=== PATIENT | female | born 1935 | race Caucasian/White ===

== ENCOUNTER 2023-11-19 12:28 | Emergency (ER) | payer OTHER, MEDICARE ==
[2023-11-19 12:52] VITALS: RESP 18; TEMP 98.8; BMI 17.4
[2023-11-19] MEDS ORDERED: ACETAMINOPHEN INJECTION 100 ML IVPB ONE (14:01)
[2023-11-19] MEDS ORDERED: SODIUM BICARBONATE 8.4% 50 MEQ/50 ML VIAL ONE (14:01)
[2023-11-19 14:26] LABS: BASO % 0.8 % (0-2.0); EOS % 0.5 % (0-4.5); HEMATOCRIT 39.6 % (32.4-45.2); HEMOGLOBIN 13.5 GM/dL (10.7-15.3); LYMPH % 18.5 % (8-40); MCH 31.9 pg (25.7-33.7); MCHC 34.2 g/dl (32.0-36.0); MEAN CELL VOLUME 93.3 fl (80-96); MEAN PLT VOLUME 8.2 fl (7.5-11.1); MONO % 5.8 % (3.8-10.2); NEUT % 74.4 % (42.8-82.8); PLATELET COUNT 238 10^3/uL (134-434); RBC 4.24 M/mm3 (3.60-5.2); RDW 14.6 % (11.6-15.6); WHITE BLOOD COUNT 4.8 K/mm3 (4.0-10.0)
[2023-11-19 14:37] LABS: POTASSIUM 4.5 mmol/L (3.5-5.1)
[2023-11-19 14:40] LABS: ALBUMIN 3.9 g/dl (3.4-5.0); CALCIUM 9.5 mg/dL (8.5-10.1)
[2023-11-19 14:41] LABS: MAGNESIUM 2.1 mg/dL (1.8-2.4)
[2023-11-19 14:44] LABS: BILIRUBIN,TOTAL 0.9 mg/dL (0.2-1); CREATININE 0.8 mg/dL (0.55-1.3); PHOSPHOROUS 3.8 mg/dL (2.5-4.9)
[2023-11-19 14:46] LABS: TOT PROT 7.1 g/dl (6.4-8.2)
[2023-11-19 14:47] LABS: INR 0.94 (0.83-1.09); PROTHROMBIN TIME (PATIENT) 10.6 SEC (9.7-13.0)
[2023-11-19 14:50] LABS: ACTIVATED PTT 31.4 SECONDS (25.2-36.5)
[2023-11-19 15:11] LABS: URINE APPEARANCE CLEAR; URINE BILIRUBIN NEGATIVE (NEGATIVE); URINE COLOR YELLOW; URINE GLUCOSE (UA) NEGATIVE (NEGATIVE); URINE KETONE NEGATIVE (NEGATIVE); URINE LEUK ESTERASE NEGATIVE (NEGATIVE); URINE NITRITE NEGATIVE (NEGATIVE); URINE PROTEIN TRACE (NEGATIVE)
[2023-11-19] MEDS: ACETAMINOPHEN 1000 MG/100 ML BAG IVPB ONE (16:00)
[2023-11-19 20:05] VITALS: BP 125/71; PULSE 64
== END 2023-11-19 20:37 | disposition home or self-care (01) ==
LOC: JER 12:28
PROC: 3E033NZ Introduction of Analgesics, Hypnotics, Sedatives into Peripheral Vein, Percutaneous Approach (ICD-10-PCS; principal; 2023-11-19)
DX: K52.9 Noninfective gastroenteritis and colitis, unspecified (principal); R10.13 Epigastric pain; K59.00 Constipation, unspecified; R60.0 Localized edema; R10.2 Pelvic and perineal pain; R10.31 Right lower quadrant pain
CPT/HCPCS: 36415; 71045-TC-FY; 74177-TC; 80053; 81003; 83605; 83690; 83735; 84100; 84484; 85025; 85610; 85730; 87086; 93005; 93010; 99285-25; J0131; Q9967

== ENCOUNTER 2023-11-23 17:34 | Inpatient (IN) | payer OTHER, MEDICARE ==
[2023-11-23 19:04] LABS: BASO % 0.2 % (0-2.0); EOS % 0.4 % (0-4.5); HEMATOCRIT 39.8 % (32.4-45.2); HEMOGLOBIN 13.1 GM/dL (10.7-15.3); LYMPH % 10.2 % (8-40); MCH 31.4 pg (25.7-33.7); MCHC 32.9 g/dl (32.0-36.0); MEAN CELL VOLUME 95.4 fl (80-96); MEAN PLT VOLUME 7.7 fl (7.5-11.1); MONO % 6.5 % (3.8-10.2); NEUT % 82.7 % (42.8-82.8); PLATELET COUNT 184 10^3/uL (134-434); RBC 4.17 M/mm3 (3.60-5.2); RDW 14.4 % (11.6-15.6); WHITE BLOOD COUNT 11.6 K/mm3 (4.0-10.0)
[2023-11-23 19:23] LABS: CHLORIDE 103 mmol/L (98-107); POTASSIUM 3.9 mmol/L (3.5-5.1); SODIUM 138 mmol/L (136-145)
[2023-11-23 19:26] LABS: CALCIUM 9.4 mg/dL (8.5-10.1)
[2023-11-23 19:27] LABS: ALBUMIN 3.8 g/dl (3.4-5.0); ANION GAP 5 mmol/L (4-13); BLOOD UREA NITROGEN 18.8 mg/dL (7-18); CO2 30 mmol/L (21-32); GLUCOSE,RANDOM 106 mg/dL (74-106)
[2023-11-23 19:30] LABS: CREATININE 0.8 mg/dL (0.55-1.3); SGOT/AST 42 U/L (15-37); SGPT/ALT 47 U/L (13-61)
[2023-11-23 19:31] LABS: TOT PROT 6.9 g/dl (6.4-8.2)
[2023-11-23 19:32] LABS: BILIRUBIN,TOTAL 1.1 mg/dL (0.2-1)
[2023-11-23 19:33] LABS: ALK PHOS 158 U/L (45-117)
[2023-11-23] MEDS ORDERED: ACETAMINOPHEN INJECTION 100 ML IVPB ONE (20:02)
[2023-11-23] MEDS: ACETAMINOPHEN 1000 MG/100 ML BAG IVPB ONE (20:12)
[2023-11-23 20:22] LABS: EPI CELLS 1 /uL (0-25.1); HYALINE CASTS 0 /uL (0-3.1); PH,URINE 7.5 (5.0-8.0); URINE APPEARANCE CLEAR; URINE BACTERIA >9,000 /uL (0-1359); URINE BILIRUBIN NEGATIVE (NEGATIVE); URINE COLOR YELLOW; URINE GLUCOSE (UA) NEGATIVE (NEGATIVE); URINE KETONE NEGATIVE (NEGATIVE); URINE LEUK ESTERASE 1+ (NEGATIVE); URINE NITRITE POSITIVE (NEGATIVE); URINE PROTEIN NEGATIVE (NEGATIVE); URINE RBC 10 /uL (0-23.9); URINE UROBILINOGEN 0.2 mg/dL (0.2-1.0); URINE WBC 127 /uL (0-25.8)
[2023-11-23] MEDS ORDERED: CEFTRIAXONE 1 GM/50 ML BAG ONE (21:00)
[2023-11-23] MEDS ORDERED: ACETAMINOPHEN 325 MG TABLET (FP) PO PRN (23:04)
[2023-11-23] MEDS ORDERED: PHENAZOPYRIDINE HCL 100 MG TABLET (FP) ONE (23:12)
[2023-11-23] MEDS ORDERED: LOSARTAN POTASSIUM 50 MG TABLET ONE (23:13)
[2023-11-23] MEDS: LIDOCAINE PATCH REMOVAL MC SCH (23:15)
[2023-11-23] MEDS: LIDOCAINE 5% TOPICAL PATCH TP SCH (23:15)
[2023-11-23] MEDS: PHENAZOPYRIDINE HCL 100 MG TABLET (FP) PO ONE (23:15)
[2023-11-23] MEDS: LOSARTAN POTASSIUM 50 MG TABLET PO ONE (23:15)
[2023-11-23 23:50] LABS: MAGNESIUM 1.9 mg/dL (1.8-2.4)
[2023-11-24] MEDS ORDERED: HALOPERIDOL LACTATE 5 MG/ML ONE (00:06)
[2023-11-24] MEDS: D5-1/2NS+10 MEQ KCL - 10 MEQ/1,000 ML INFUS.BAG IV SCH (00:15)
[2023-11-24] MEDS: HALOPERIDOL LACTATE 5 MG/ML IM ONE (00:40)
[2023-11-24] MEDS: LORazepam 2 MG/ML SDV VIAL IVPUSH PRN (00:40)
[2023-11-24] MEDS: MELATONIN 1 MG TABLET PO ONE (00:41)
[2023-11-24 06:07] LABS: POTASSIUM 3.6 mmol/L (3.5-5.1)
[2023-11-24 06:09] LABS: BASO % 0.3 % (0-2.0); EOS % 0.8 % (0-4.5); HEMATOCRIT 37.9 % (32.4-45.2); HEMOGLOBIN 12.8 GM/dL (10.7-15.3); LYMPH % 7.9 % (8-40); MCH 31.9 pg (25.7-33.7); MCHC 33.9 g/dl (32.0-36.0); MEAN CELL VOLUME 94.1 fl (80-96); MEAN PLT VOLUME 7.7 fl (7.5-11.1); MONO % 5.9 % (3.8-10.2); NEUT % 85.1 % (42.8-82.8); PLATELET COUNT 170 10^3/uL (134-434); RBC 4.03 M/mm3 (3.60-5.2); RDW 14.6 % (11.6-15.6); WHITE BLOOD COUNT 10.2 K/mm3 (4.0-10.0)
[2023-11-24 06:11] LABS: CALCIUM 8.5 mg/dL (8.5-10.1)
[2023-11-24 06:12] LABS: BLOOD UREA NITROGEN 15.1 mg/dL (7-18)
[2023-11-24 06:15] LABS: CREATININE 0.7 mg/dL (0.55-1.3)
[2023-11-24] MEDS: AMINO ACIDS/PROTEIN HYDROLYS 30 ML LIQUID.PKT PO SCH (08:51)
[2023-11-24] MEDS ORDERED: ESCITALOPRAM OXALATE 10 MG TABLET ONE (08:54)
[2023-11-24] MEDS ORDERED: PANTOPRAZOLE 40 MG TABLET PO ONE (08:54)
[2023-11-24] MEDS ORDERED: CHOLECALCIFEROL (VIT D3) 1,000 UNIT (25 MCG) TABLET ONE (08:54)
[2023-11-24] MEDS ORDERED: LIDOCAINE 5% TOPICAL PATCH ONE (08:54)
[2023-11-24] MEDS: PANTOPRAZOLE 40 MG TABLET PO SCH (09:18)
[2023-11-24] MEDS: LACTOBACILLUS ACIDOPHILUS 1 TABLET PO SCH (09:18)
[2023-11-24] MEDS: ESCITALOPRAM OXALATE 10 MG TABLET PO SCH (09:18)
[2023-11-24] MEDS: MEMANTINE HCL 5 MG TABLET (UD) PO SCH (09:18)
[2023-11-24] MEDS: CYANOCOBALAMIN 1,000 MCG TABLET (FP) PO SCH (09:19)
[2023-11-24] MEDS: MULTIVITAMINS THER W-MINERALS COMBO TABLET (FP) PO SCH (09:19)
[2023-11-24] MEDS: CHOLECALCIFEROL (VIT D3) 1,000 UNIT (25 MCG) TABLET PO SCH (09:19)
[2023-11-24] MEDS ORDERED: PANTOPRAZOLE 40 MG TABLET PO SCH (10:00)
[2023-11-24 10:46] LABS: ERYTHROCYTE SEDIMENTATION RATE 11 mm/hr (0-30)
[2023-11-24] MEDS ORDERED: CEFTRIAXONE 2 GM/100 ML BAG IVPB ONE (15:05)
[2023-11-24] MEDS: CEFTRIAXONE 2 GM in DEXTROSE 5%-WATER 100 ML IVPB SCH (15:05)
[2023-11-24] MEDS: MONTELUKAST NA 10 MG TABLET PO SCH (21:44)
[2023-11-25 07:22] LABS: BASO % 0.6 % (0-2.0); EOS % 0.9 % (0-4.5); HEMATOCRIT 37.2 % (32.4-45.2); HEMOGLOBIN 12.7 GM/dL (10.7-15.3); LYMPH % 11.4 % (8-40); MCH 32.1 pg (25.7-33.7); MCHC 34.2 g/dl (32.0-36.0); MEAN CELL VOLUME 93.7 fl (80-96); MEAN PLT VOLUME 8.1 fl (7.5-11.1); MONO % 6.4 % (3.8-10.2); NEUT % 80.7 % (42.8-82.8); PLATELET COUNT 166 10^3/uL (134-434); RBC 3.97 M/mm3 (3.60-5.2); WHITE BLOOD COUNT 8.9 K/mm3 (4.0-10.0)
[2023-11-25 07:27] LABS: POTASSIUM 3.7 mmol/L (3.5-5.1)
[2023-11-25 07:32] LABS: CALCIUM 8.3 mg/dL (8.5-10.1)
[2023-11-25 07:33] LABS: BLOOD UREA NITROGEN 20.2 mg/dL (7-18)
[2023-11-25 07:34] LABS: CREATININE 0.7 mg/dL (0.55-1.3)
[2023-11-25] MEDS: D5-1/2NS+10 MEQ KCL - 10 MEQ/1,000 ML INFUS.BAG IV SCH (09:57)
[2023-11-25 15:33] VITALS: BMI 16.9
[2023-11-25] MEDS: POLYETHYLENE GLYCOL (HEALTHYLAX) 3350 17 GM PACKET PO SCH (17:04)
[2023-11-25] MEDS: MINERAL OIL ENEMA 133 ML ENEMA RC ONE (17:04)
[2023-11-25] MEDS: DOCUSATE SODIUM 100 MG CAPSULE (FP) PO SCH (17:05)
[2023-11-25 17:48] LABS: INR 0.98 (0.83-1.09); PROTHROMBIN TIME (PATIENT) 11.1 SEC (9.7-13.0)
[2023-11-25] MEDS: MELATONIN 5 MG TABLETS PO ONE (21:53)
[2023-11-26] MEDS: D5-1/2NS+10 MEQ KCL - 10 MEQ/1,000 ML INFUS.BAG IV SCH ×3 (09:15→22:59)
[2023-11-26 12:23] LABS: BASO % 0.2 % (0-2.0); EOS % 0.7 % (0-4.5); HEMATOCRIT 35.6 % (32.4-45.2); HEMOGLOBIN 12.1 GM/dL (10.7-15.3); LYMPH % 10.1 % (8-40); MCH 32.2 pg (25.7-33.7); MCHC 34.1 g/dl (32.0-36.0); MEAN CELL VOLUME 94.3 fl (80-96); MEAN PLT VOLUME 8.2 fl (7.5-11.1); MONO % 7.5 % (3.8-10.2); NEUT % 81.5 % (42.8-82.8); PLATELET COUNT 175 10^3/uL (134-434); RBC 3.77 M/mm3 (3.60-5.2); RDW 13.9 % (11.6-15.6); WHITE BLOOD COUNT 7.9 K/mm3 (4.0-10.0)
[2023-11-26 12:38] LABS: CALCIUM 8.4 mg/dL (8.5-10.1); POTASSIUM 3.6 mmol/L (3.5-5.1)
[2023-11-26 12:39] LABS: BLOOD UREA NITROGEN 15.8 mg/dL (7-18)
[2023-11-26 12:42] LABS: CREATININE 0.6 mg/dL (0.55-1.3)
[2023-11-26] MEDS ORDERED: PROPOFOL 20 ML ONE (13:27)
[2023-11-26] MEDS ORDERED: BUPIVACAINE HCL/PF 0.5% (5MG/ML) 10 ML VIAL ONE (13:30)
[2023-11-26] MEDS ORDERED: ALBUTEROL SO4 HFA INHALER IH ONE (13:32)
[2023-11-26] MEDS ORDERED: ceFAZolin SODIUM 1 GM VIAL ONE (13:35)
[2023-11-26] MEDS: ceFAZolin SODIUM 1 GM VIAL IVPB ONE (14:20)
[2023-11-26] MEDS ORDERED: ONDANSETRON 4 MG/2 ML VIAL IVPUSH PRN (15:27)
[2023-11-26] MEDS ORDERED: ACETAMINOPHEN INJECTION 100 ML IVPB ONE (16:08)
[2023-11-26] MEDS: ACETAMINOPHEN 1000 MG/100 ML BAG IVPB ONE (16:16)
[2023-11-26] MEDS: LACTATED RINGERS SOLUTION 1,000 ML IV SCH (16:17)
[2023-11-26] MEDS ORDERED: POLYETHYLENE GLYCOL (HEALTHYLAX) 3350 17 GM PACKET PO ONE (16:25)
[2023-11-26] MEDS: POLYETHYLENE GLYCOL (HEALTHYLAX) 3350 17 GM PACKET PO ONE (19:04)
[2023-11-26] MEDS: AMINO ACIDS/PROTEIN HYDROLYS 30 ML LIQUID.PKT PO SCH (19:04)
[2023-11-26] MEDS: MEMANTINE HCL 5 MG TABLET (UD) PO SCH (22:57)
[2023-11-26] MEDS: DOCUSATE SODIUM 100 MG CAPSULE (FP) PO SCH (22:57)
[2023-11-26] MEDS: LIDOCAINE PATCH REMOVAL MC SCH ×2 (22:58)
[2023-11-26] MEDS: MONTELUKAST NA 10 MG TABLET PO SCH (22:58)
[2023-11-26] MEDS ORDERED: CEFAZOLIN SODIUM 2 GM in DEXTROSE 5%-WATER 100 ML IVPB SCH ×2 (23:00→23:47)
[2023-11-26] MEDS: ACETAMINOPHEN 1000 MG/100 ML BAG IVPB PRN (23:24)
[2023-11-26] MEDS: LORazepam 2 MG/ML SDV VIAL IVPUSH PRN (23:25)
[2023-11-26] MEDS: CEFAZOLIN SODIUM 2 GM in DEXTROSE 5%-WATER 100 ML IVPB SCH (23:51)
[2023-11-27] MEDS: CEFAZOLIN 2 GM in DEXTROSE 5%-WATER - 50 ML IVPB SCH (01:07)
[2023-11-27 08:10] LABS: BASO % 0.2 % (0-2.0); EOS % 0.5 % (0-4.5); HEMOGLOBIN 11.5 GM/dL (10.7-15.3); LYMPH % 5.1 % (8-40); MCHC 33.8 g/dl (32.0-36.0); MEAN CELL VOLUME 94.6 fl (80-96); MEAN PLT VOLUME 8.2 fl (7.5-11.1); MONO % 7.4 % (3.8-10.2); NEUT % 86.8 % (42.8-82.8); PLATELET COUNT 182 10^3/uL (134-434); RBC 3.59 M/mm3 (3.60-5.2); RDW 13.9 % (11.6-15.6); WHITE BLOOD COUNT 9.3 K/mm3 (4.0-10.0)
[2023-11-27 08:22] LABS: POTASSIUM 3.6 mmol/L (3.5-5.1)
[2023-11-27 08:29] LABS: CALCIUM 8.5 mg/dL (8.5-10.1)
[2023-11-27 08:30] LABS: BLOOD UREA NITROGEN 17.9 mg/dL (7-18)
[2023-11-27 08:33] LABS: CREATININE 0.7 mg/dL (0.55-1.3)
[2023-11-27] MEDS ORDERED: ENOXAPARIN NA (PORCINE) 40 MG/0.4 ML DISP.SYRIN SQ SCH (10:00)
[2023-11-27] MEDS: LIDOCAINE 5% TOPICAL PATCH TP SCH (10:05)
[2023-11-27] MEDS: ENOXAPARIN NA (PORCINE) 40 MG/0.4 ML DISP.SYRIN SQ SCH (10:05)
[2023-11-27] MEDS: CYANOCOBALAMIN 1,000 MCG TABLET (FP) PO SCH (10:06)
[2023-11-27] MEDS: CHOLECALCIFEROL (VIT D3) 1,000 UNIT (25 MCG) TABLET PO SCH (10:06)
[2023-11-27] MEDS: LACTOBACILLUS ACIDOPHILUS 1 TABLET PO SCH (10:06)
[2023-11-27] MEDS: ESCITALOPRAM OXALATE 10 MG TABLET PO SCH (10:06)
[2023-11-27] MEDS: MULTIVITAMINS THER W-MINERALS COMBO TABLET (FP) PO SCH (10:06)
[2023-11-27] MEDS: PANTOPRAZOLE 40 MG TABLET PO SCH (10:06)
[2023-11-27] MEDS: CEFTRIAXONE 2 GM in DEXTROSE 5%-WATER 100 ML IVPB SCH (11:04)
[2023-11-27] MEDS: ACETAMINOPHEN 325 MG TABLET (FP) PO PRN (22:49)
[2023-11-28 09:32] LABS: HEMATOCRIT 27.2 % (32.4-45.2); HEMOGLOBIN 9.5 GM/dL (10.7-15.3); MCH 32.2 pg (25.7-33.7); MEAN PLT VOLUME 8.1 fl (7.5-11.1); PLATELET COUNT 171 10^3/uL (134-434); RBC 2.95 M/mm3 (3.60-5.2); WHITE BLOOD COUNT 8.4 K/mm3 (4.0-10.0)
[2023-11-28] MEDS: LACTATED RINGERS SOLUTION 1,000 ML IV SCH (12:33)
[2023-11-28] MEDS: IRON SUCROSE INJECTION 300 MG in SODIUM CHLORIDE 235 ML IVPB ONE (13:21)
[2023-11-28] MEDS: ONDANSETRON 4 MG/2 ML VIAL IVPUSH ONE (13:24)
[2023-11-28] MEDS: MINERAL OIL ENEMA 133 ML ENEMA RC ONE (18:20)
[2023-11-28] MEDS: POLYETHYLENE GLYCOL (HEALTHYLAX) 3350 17 GM PACKET PO PRN (18:20)
[2023-11-28] MEDS: CEPHALEXIN MONOHYDRATE 500 MG CAPSULE (UD) PO SCH (21:28)
[2023-11-29 09:09] LABS: BASO % 0.3 % (0-2.0); EOS % 1.5 % (0-4.5); HEMATOCRIT 25.7 % (32.4-45.2); HEMOGLOBIN 8.9 GM/dL (10.7-15.3); LYMPH % 8.4 % (8-40); MCH 32.4 pg (25.7-33.7); MCHC 34.7 g/dl (32.0-36.0); MEAN CELL VOLUME 93.2 fl (80-96); MEAN PLT VOLUME 8.2 fl (7.5-11.1); MONO % 8.3 % (3.8-10.2); NEUT % 81.5 % (42.8-82.8); PLATELET COUNT 198 10^3/uL (134-434); RBC 2.76 M/mm3 (3.60-5.2); RDW 13.6 % (11.6-15.6); WHITE BLOOD COUNT 8.2 K/mm3 (4.0-10.0)
[2023-11-29 09:13] LABS: POTASSIUM 3.7 mmol/L (3.5-5.1)
[2023-11-29 09:14] LABS: CALCIUM 8.3 mg/dL (8.5-10.1)
[2023-11-29 09:15] LABS: BLOOD UREA NITROGEN 16.5 mg/dL (7-18)
[2023-11-29 09:18] LABS: CREATININE 0.6 mg/dL (0.55-1.3)
[2023-11-29] MEDS: IRON SUCROSE INJECTION 300 MG in SODIUM CHLORIDE 235 ML IVPB ONE (11:41)
[2023-11-29] MEDS: EPOETIN ALFA-EPBX 20,000 UNIT/ML VIAL SQ ONE (11:41)
[2023-11-29] MEDS: LACTATED RINGERS SOLUTION 1,000 ML IV SCH (15:01)
[2023-11-30] MEDS: LACTATED RINGERS SOLUTION 1,000 ML IV SCH ×2 (07:00→19:55)
[2023-11-30] MEDS: ONDANSETRON 4 MG/2 ML VIAL IVPUSH PRN (09:19)
[2023-11-30 10:15] LABS: BASO % 0.7 % (0-2.0); EOS % 1.7 % (0-4.5); HEMATOCRIT 25.3 % (32.4-45.2); HEMOGLOBIN 8.7 GM/dL (10.7-15.3); LYMPH % 10.2 % (8-40); MCH 32.2 pg (25.7-33.7); MCHC 34.5 g/dl (32.0-36.0); MEAN CELL VOLUME 93.3 fl (80-96); MEAN PLT VOLUME 8.1 fl (7.5-11.1); MONO % 8.8 % (3.8-10.2); NEUT % 78.6 % (42.8-82.8); PLATELET COUNT 237 10^3/uL (134-434); RBC 2.71 M/mm3 (3.60-5.2); RDW 13.9 % (11.6-15.6); WHITE BLOOD COUNT 6.6 K/mm3 (4.0-10.0)
[2023-11-30 10:23] LABS: POTASSIUM 3.8 mmol/L (3.5-5.1)
[2023-11-30 10:27] LABS: BLOOD UREA NITROGEN 16.8 mg/dL (7-18); CALCIUM 7.9 mg/dL (8.5-10.1)
[2023-11-30 10:31] LABS: CREATININE 0.5 mg/dL (0.55-1.3)
[2023-11-30] MEDS ORDERED: POLYETHYLENE GLYCOL (HEALTHYLAX) 3350 17 GM PACKET PO SCH ×2 (11:15→22:00)
[2023-11-30] MEDS: PANTOPRAZOLE SODIUM 40 MG VIAL IVPUSH SCH (11:48)
[2023-11-30] MEDS: IRON SUCROSE INJECTION 300 MG in SODIUM CHLORIDE 235 ML IVPB ONE (13:12)
[2023-11-30] MEDS: POLYETHYLENE GLYCOL (HEALTHYLAX) 3350 17 GM PACKET PO ONE (14:11)
[2023-11-30] MEDS: MINERAL OIL ENEMA 133 ML ENEMA RC ONE (14:12)
[2023-11-30] MEDS: MAGNESIUM HYDROX 2400MG/30ML ORAL SUSPENSION 30 ML CUP PO ONE (14:12)
[2023-11-30] MEDS: MINERAL OIL 30 ML UNIT-DOSE CUP PO ONE (14:13)
[2023-12-01] MEDS: POLYETHYLENE GLYCOL (HEALTHYLAX) 3350 17 GM PACKET PO SCH (05:22)
[2023-12-01] MEDS: PANTOPRAZOLE 20 MG TABLET PO SCH (09:57)
[2023-12-01 10:47] LABS: HEMATOCRIT 31.1 % (32.4-45.2); HEMOGLOBIN 10.6 GM/dL (10.7-15.3); MCHC 34.3 g/dl (32.0-36.0); MEAN CELL VOLUME 93.4 fl (80-96); MEAN PLT VOLUME 7.6 fl (7.5-11.1); PLATELET COUNT 316 10^3/uL (134-434); RBC 3.32 M/mm3 (3.60-5.2); RDW 13.9 % (11.6-15.6); WHITE BLOOD COUNT 7.8 K/mm3 (4.0-10.0)
[2023-12-01 11:19] LABS: ANISOCYTOSIS 0; MACROCYTOSIS 0
[2023-12-01 11:31] LABS: CALCIUM 8.1 mg/dL (8.5-10.1); POTASSIUM 3.9 mmol/L (3.5-5.1)
[2023-12-01 11:32] LABS: BLOOD UREA NITROGEN 11.2 mg/dL (7-18)
[2023-12-01 11:36] LABS: CREATININE 0.6 mg/dL (0.55-1.3)
[2023-12-01] MEDS: DOCUSATE SODIUM 100 MG CAPSULE (FP) PO SCH (13:49)
[2023-12-01] MEDS: LACTATED RINGERS SOLUTION 1,000 ML IV SCH (16:53)
[2023-12-01 18:56] VITALS: RESP 18
[2023-12-02 09:32] LABS: HEMATOCRIT 30.9 % (32.4-45.2); HEMOGLOBIN 10.6 GM/dL (10.7-15.3); MCH 32.2 pg (25.7-33.7); MCHC 34.2 g/dl (32.0-36.0); MEAN CELL VOLUME 94.1 fl (80-96); MEAN PLT VOLUME 7.3 fl (7.5-11.1); PLATELET COUNT 341 10^3/uL (134-434); RBC 3.29 M/mm3 (3.60-5.2); RDW 13.8 % (11.6-15.6); WHITE BLOOD COUNT 9.1 K/mm3 (4.0-10.0)
[2023-12-02 09:47] LABS: POTASSIUM 3.8 mmol/L (3.5-5.1)
[2023-12-02 09:51] LABS: CALCIUM 8.4 mg/dL (8.5-10.1)
[2023-12-02 09:52] LABS: BLOOD UREA NITROGEN 8.9 mg/dL (7-18)
[2023-12-02 09:55] LABS: CREATININE 0.6 mg/dL (0.55-1.3)
[2023-12-02 10:45] LABS: ANISOCYTOSIS 0; HELMET CELLS 0; HOWELL-JOLLY BODIES 0; MACROCYTOSIS 0; OVALOCYTE 0; ROULEAU 0; SICKELED CELLS 0; TARGET CELLS 0; TEAR DROP CELLS 0; TOXIC GRANULATION 0
[2023-12-02] MEDS: LACTATED RINGERS SOLUTION 1,000 ML IV SCH (13:08)
[2023-12-03] MEDS: DRONABINOL 2.5 MG CAPSULE PO SCH (09:45)
[2023-12-03 10:27] LABS: HEMATOCRIT 31.4 % (32.4-45.2); HEMOGLOBIN 10.9 GM/dL (10.7-15.3); MCH 32.6 pg (25.7-33.7); MCHC 34.6 g/dl (32.0-36.0); MEAN CELL VOLUME 94.1 fl (80-96); MEAN PLT VOLUME 7.2 fl (7.5-11.1); PLATELET COUNT 434 10^3/uL (134-434); RBC 3.34 M/mm3 (3.60-5.2); RDW 14.2 % (11.6-15.6); WHITE BLOOD COUNT 8.6 K/mm3 (4.0-10.0)
[2023-12-03 10:46] LABS: POTASSIUM 3.6 mmol/L (3.5-5.1)
[2023-12-03 10:54] LABS: CALCIUM 8.2 mg/dL (8.5-10.1)
[2023-12-03 10:58] LABS: CREATININE 0.5 mg/dL (0.55-1.3)
[2023-12-03] MEDS: HEPARIN NA (PORCINE) 5,000 UNITS/ML 1ML VIAL SQ SCH (11:02)
[2023-12-03 11:32] LABS: ANISOCYTOSIS 0; HELMET CELLS 0; HOWELL-JOLLY BODIES 0; MACROCYTOSIS 0; OVALOCYTE 0; ROULEAU 0; SICKELED CELLS 0; TARGET CELLS 0; TEAR DROP CELLS 0; TOXIC GRANULATION 0
[2023-12-03 15:23] VITALS: BP 155/80; PULSE 88; TEMP 99.2
[2023-12-04 08:11] LABS: CARCINOEMBRYONIC ANTIGEN 2.5 ng/mL (0.0-4.7)
[2023-12-05 20:07] LABS: IG A QN SERUM. 239 mg/dL (64-422)
== END 2023-12-03 16:01 | DRG 481 ==
LOC: JER 17:34 → JERBED 21:19 → J4W 11-24 17:31 → J5S 11-26 21:20
PROVIDERS: ADMIT Internal Medicine; ATTEND Internal Medicine
PROC: 0QS706Z Reposition Left Upper Femur with Intramedullary Internal Fixation Device, Open Approach (ICD-10-PCS; principal; 2023-11-26 13:30)
DX: S72.142A Displaced intertrochanteric fracture of left femur, initial encounter for closed fracture (principal); F05 Delirium due to known physiological condition; M97.02XA Periprosthetic fracture around internal prosthetic left hip joint, initial encounter; N39.0 Urinary tract infection, site not specified; J44.9 Chronic obstructive pulmonary disease, unspecified; D64.9 Anemia, unspecified; M81.0 Age-related osteoporosis without current pathological fracture; K58.9 Irritable bowel syndrome, unspecified; G30.9 Alzheimer's disease, unspecified; I10 Essential (primary) hypertension; F02.80 Dementia in other diseases classified elsewhere, unspecified severity, without behavioral disturbance, psychotic disturbance, mood disturbance, and anxiety; B96.20 Unspecified Escherichia coli [E. coli] as the cause of diseases classified elsewhere; E86.0 Dehydration; R11.2 Nausea with vomiting, unspecified; K56.41 Fecal impaction; J47.9 Bronchiectasis, uncomplicated; D50.9 Iron deficiency anemia, unspecified; F41.9 Anxiety disorder, unspecified; D51.9 Vitamin B12 deficiency anemia, unspecified; W18.30XA Fall on same level, unspecified, initial encounter; Y93.9 Activity, unspecified; R26.2 Difficulty in walking, not elsewhere classified; Y92.091 Bathroom in other non-institutional residence as the place of occurrence of the external cause; Y99.9 Unspecified external cause status
CPT/HCPCS: 0241U-QW; 36415; 70450-TC; 71045-TC-FY; 72125-TC; 72170-TC-FY; 73070-TC-LT-FY; 73502-TC-RT-FY; 73521-TC-FY; 74176-TC; 80048; 80053; 81003; 82378; 82728; 82784; 82787; 83540; 83550; 83735; 84155; 84165; 84484; 85025; 85027; 85610; 85651; 86038; 86140; 86301; 86304; 86334; 86850; 86900; 86901; 87086; 87186; 93005; 93010; 93306-TC; 94760; 97116-GP; 97162-GP; 99285-25; C1713; J0131; J1644; J1756